=== PATIENT | female | born 1940 | race Caucasian/White ===

== ENCOUNTER 2016-05-08 08:37 | Emergency (ER) | payer MEDICARE ==
--- NOTE | ~2016-05-08 | CR20 ---
[facility] A Service of [facility] & [facility] RADIOLOGY TEXT RESULTS PATIENT: SAUL RALPH LOCATION: SED : 44 UNIT #: [id number] AGE: [address]: Rich Muller MD SEX: F ORDER DR: [id number] [place] [address] [id number] MR#: [id number] Acc #: [id number] NAME: SAUL RALPH : 1940 SEX: F STUDY DATE/TIME: 05/08/2016 8:46 UNIT: SED ROOM: STUDY DESCRIPTION: CR Ankle Min 3 Views Lt Attending Physician: Rich Muller M.D. Ordering Physician: Rich Muller M.D. Primary Care Physician: Latoya Canela A.P.R.N. MEDICAL IMAGING REPORT This report is preliminary unless electronic signature is present. EXAM Left ankle, 05/08. INDICATION Ankle pain and swelling after falling last night at 6:30 p.m. FINDINGS 3 views of the left ankle were obtained. There is an oblique, minimally displaced fracture of the distal fibula. There is also a minimally displaced fracture of the posterior malleolus. There is associated soft tissue swelling on both sides of the ankle. The mortise is intact. No other fractures are seen. IMPRESSION Oblique minimally displaced fracture of the distal fibula. There is also a tiny fracture from the posterior malleolus. There is associated soft tissue swelling but there is no malalignment. Dictated by... Zak Amezcua Jr., M.D. THIS IS AN ELECTRONICALLY VERIFIED REPORT Zak Amezcua Jr., M.D. at 05/08/2016 3:50 PM ARSENIO/latonia TD: 05/08/2016 10:27 JOB #: [id number] MEDICAL IMAGING REPORT
[~2016-05-08 08:37] MED LIST: CARAFATE PO; CIPRO PO; DIAZEPAM PO; ERY-TAB500 MG PO; LISINOPRIL PO; LISINOPRIL20 MG PO; PAXIL PO; PAXIL40 MG PO; PERCOCET 5/321 UDTAB PO; PROTONIX PO; ROBITUSSIN100 MG/51 PO; VITAMIN D50000 UNIT PO
[2016-05-08] MEDS ORDERED: VOLTAREN75 MG PO (10:26)
[2016-05-08] MEDS ORDERED: TRAMADOL HCL50 M1 PO (10:27)
== END 2016-05-08 10:30 | disposition home or self-care (01) ==
LOC: SED 08:37
DX: S82.832A Other fracture of upper and lower end of left fibula, initial encounter for closed fracture (principal); S82.52XA Displaced fracture of medial malleolus of left tibia, initial encounter for closed fracture; F32.9 Major depressive disorder, single episode, unspecified; I10 Essential (primary) hypertension; F17.210 Nicotine dependence, cigarettes, uncomplicated; Z88.0 Allergy status to penicillin; Z88.2 Allergy status to sulfonamides; Z79.899 Other long term (current) drug therapy; W18.39XA Other fall on same level, initial encounter; Y92.098 Other place in other non-institutional residence as the place of occurrence of the external cause
CPT/HCPCS: 29515; 73610; 99283